=== PATIENT | female | born 1945 | race Caucasian/White ===

== ENCOUNTER 2016-12-25 14:30 | Outpatient (RCR) | payer OTHER | END 2017-01-06 | disposition home or self-care (01) | LOC: PTY 14:30 | DX: Z96.651 Presence of right artificial knee joint (principal) | CPT/HCPCS: 97110; 97140; 97162; G0283 ==

== ENCOUNTER 2017-01-23 12:00 | Outpatient (RCR) | payer OTHER | END 2017-02-06 | disposition home or self-care (01) | LOC: PTY 12:00 | DX: Z47.1 Aftercare following joint replacement surgery (principal); Z96.651 Presence of right artificial knee joint; M17.0 Bilateral primary osteoarthritis of knee | CPT/HCPCS: 97110; 97140; G0283 ==

== ENCOUNTER 2017-02-10 11:20 | Outpatient (RCR) | payer OTHER | END 2017-03-08 | disposition home or self-care (01) | LOC: PTY 11:20 | DX: M17.0 Bilateral primary osteoarthritis of knee (principal); Z96.652 Presence of left artificial knee joint | CPT/HCPCS: 97110; 97140; G0283 ==

== ENCOUNTER 2017-10-28 13:30 | Outpatient (RCR) | payer OTHER | END 2017-11-08 | disposition home or self-care (01) | LOC: PTY 13:30 | DX: M21.40 Flat foot [pes planus] (acquired), unspecified foot (principal); Z98.1 Arthrodesis status ==

== ENCOUNTER 2017-10-29 14:00 | Outpatient (RCR) | payer OTHER | END 2017-11-08 | disposition home or self-care (01) | LOC: PTY 14:00 | DX: M75.81 Other shoulder lesions, right shoulder (principal) ==

== ENCOUNTER 2017-12-04 11:00 | Outpatient (RCR) | payer OTHER | END 2017-12-09 | disposition home or self-care (01) | LOC: PTY 11:00 | DX: M75.81 Other shoulder lesions, right shoulder (principal); Z96.652 Presence of left artificial knee joint ==

== ENCOUNTER → 2017-12-09 | Outpatient (RCR) | payer OTHER | END | disposition home or self-care (01) | LOC: PTY 11-11 11:16 | DX: M21.40 Flat foot [pes planus] (acquired), unspecified foot (principal); Z98.1 Arthrodesis status ==

== ENCOUNTER 2017-12-23 11:00 | Outpatient (RCR) | payer OTHER | END 2018-01-06 | disposition home or self-care (01) | LOC: PTY 11:00 | DX: M75.81 Other shoulder lesions, right shoulder (principal); Z96.652 Presence of left artificial knee joint ==

== ENCOUNTER 2018-01-12 10:35 | Outpatient (RCR) | payer OTHER | END 2018-02-06 | disposition home or self-care (01) | LOC: PTY 10:35 | DX: M21.40 Flat foot [pes planus] (acquired), unspecified foot (principal); Z98.1 Arthrodesis status ==

== ENCOUNTER 2018-02-09 11:13 | Outpatient (RCR) | payer OTHER | END 2018-03-08 | disposition home or self-care (01) | LOC: PTY 11:13 | DX: M21.40 Flat foot [pes planus] (acquired), unspecified foot (principal); Z98.1 Arthrodesis status ==